=== PATIENT | male | born 1950 | race Two or more races ===

== ENCOUNTER 2019-09-17 15:48 | Inpatient (IN) | payer OTHER ==
[~2019-09-17] VITALS: Ht 175.3 cm; Wt 69.9 kg
[2019-09-17] MEDS ORDERED: VITAMIN E400 UNI2 PO (16:22)
[2019-09-17] MEDS ORDERED: LOSARTAN POTAS100 MG PO (16:22)
[2019-09-17] MEDS ORDERED: AMLODIPINE BESYL5 MG PO (16:22)
== END 2019-09-20 18:50 | disposition home or self-care (01) | DRG 813 ==
LOC: ER 15:48 → MEDI 19:01 → SEC-K 19:01 → MEDI 20:53
PROVIDERS: ADMIT Internal Medicine; ATTEND Internal Medicine
PROC: 8E0ZXY6 Isolation (ICD-10-PCS; principal; 2019-09-17)
PROC: 30233R1 Transfusion of Nonautologous Platelets into Peripheral Vein, Percutaneous Approach (ICD-10-PCS; 2019-09-20)
DX: D69.49 Other primary thrombocytopenia (principal); I10 Essential (primary) hypertension; F32.9 Major depressive disorder, single episode, unspecified; R31.29 Other microscopic hematuria

== ENCOUNTER 2019-12-11 13:04 | Inpatient (IN) | payer OTHER ==
[~2019-12-11] VITALS: Ht 177.8 cm; Wt 153.0 kg
[~2019-12-11 13:04] MED LIST: AMLODIPINE BESYL5 MG PO; LOSARTAN POTAS100 MG PO; VITAMIN E400 UNI2 PO
[2019-12-11] MEDS ORDERED: PREDNISONE20 M1 PO (13:24)
[2019-12-11] MEDS ORDERED: VITAMIN C500 M1 PO (13:25)
--- NOTE | 2019-12-11 13:25 | NUR ---
SE RECIBE PACIENTE ALERTA, ORIENTADO X 3 ESFERAS REFIERE TENER PLAQUETAS BAJAS SE UBICA EN AREA DE OBSERVACION AREA PASILLO.
--- NOTE | 2019-12-11 13:53 | NUR ---
PACIENTE ALERTA EVALUADOP POR L;A RENTA SE TOMAMEUSTARS D ENSGR EY SE DJEA EN OBSERVACION PO RCAMBIOS EN VARELA CONDSICON.,
--- NOTE | 2019-12-11 15:54 | NUR ---
SE RECIBE PTE ALERTA Y CONCIENTE POR 3 EN J LUIS CON BARANDAS ELEVADA Y TIMBRE ACCESIBLE SE OBSERVA VENOPUNCION PATENTE Y CRYSTAL DE EDEMA PTE SE MANTIENE EN OBSERVACION Y BAJO TRATAMIENTO. PTE ESPERANDO AL DR PERKINS
[2019-12-14] MEDS ORDERED: PREDNISONE20 M1 PO (08:49)
== END 2019-12-14 13:01 | disposition home or self-care (01) | DRG 813 ==
LOC: ER 13:04 → SEC-K 17:57 → SURG 17:57
PROVIDERS: ADMIT Internal Medicine; ATTEND Internal Medicine
PROC: 30233R1 Transfusion of Nonautologous Platelets into Peripheral Vein, Percutaneous Approach (ICD-10-PCS; principal; 2019-12-12)
DX: D69.49 Other primary thrombocytopenia (principal); D61.818 Other pancytopenia; R31.29 Other microscopic hematuria; Z20.828 Contact with and (suspected) exposure to other viral communicable diseases

== ENCOUNTER 2022-11-03 08:09 | Emergency (ER) | payer OTHER ==
[~2022-11-03] VITALS: Ht 180.3 cm; Wt 59.0 kg
[~2022-11-03 08:09] MED LIST changes: +PREDNISONE20 M1 PO; +VITAMIN C500 M1 PO
[2022-11-03] MEDS ORDERED: ATORVASTATIN CA10 MG PO (08:22)
[2022-11-03] MEDS ORDERED: LOSARTAN-HCTZ1 EAC2 PO (08:22)
== END 2022-11-03 11:59 | disposition home or self-care (01) ==
LOC: ER 08:09
PROVIDERS: Emergency Medicine
DX: R33.8 Other retention of urine (principal); I10 Essential (primary) hypertension; E11.9 Type 2 diabetes mellitus without complications; Z79.84 Long term (current) use of oral hypoglycemic drugs